=== PATIENT | female | born 1980 | race African-American/Black ===

== ENCOUNTER 2020-05-15 07:20 | Emergency (ER) | payer MEDICAID, OTHER ==
[~2020-05-15] VITALS: Ht 165.1 cm; Wt 77.0 kg
[2020-05-15 08:24] LABS: BASOPHILS % 0.6 % (0.0-2.0); HEMATOCRIT. 38.1 % (36.0-48.0); HEMOGLOBIN. 12.7 g/dL (12.0-16.0); LYMPHOCYTES % 27.6 % (20.0-50.0); MEAN CORPUSCULAR HEMOGLOBIN 28.6 pg (28.0-32.0); MEAN CORPUSCULAR VOLUME 85.9 fL (81.0-99.0); MEAN PLATELET VOLUME 7.2 fl (7.4-10.4); MONOCYTES % 7.7 % (2.0-8.0); NEUTROPHILS % 61.1 % (40.0-76.0); PLATELET 359 x1000/uL (130-400); RED BLOOD CELL COUNT 4.44 mill/uL (4.2-5.4); RED CELL DISTRIBUTION WIDTH 13.7 % (11.6-14.6)
[2020-05-15 08:29] LABS: CHLORIDE 113 mEq/L (98-107)
[2020-05-15 08:33] LABS: PROTHROMBIN TIME 10.3 sec (9.6-11.0)
[2020-05-15 08:43] LABS: HCG SCREEN NEGATIVE
[2020-05-15] MEDS ORDERED: KETOROLAC 30MG/ML VIAL IV STA (09:48)
[2020-05-15] MEDS ORDERED: SODIUM CHLORIDE 0.9% 1,000 ML IV ONE (09:48)
[2020-05-15] MEDS ORDERED: METOCLOPRAMIDE HCL 10MG/2ML VIAL IV ONE (10:00)
[2020-05-15] MEDS ORDERED: IOHEXOL-350 100 ML BOTTLE ONE (11:26)
[2020-05-15 11:35] VITALS: BP 154/97
== END 2020-05-15 11:58 | disposition home or self-care (01) ==
LOC: ER 07:20
DX: R51 Headache (principal); I10 Essential (primary) hypertension
CPT/HCPCS: 36415; 70486; 70496; 80053; 84484; 84703; 85025; 85610; 93005; 96361; 96374; 96375; 99285; J1885; J2765; J7030; Q9967

== ENCOUNTER 2021-07-31 12:33 | Emergency (ER) | payer MEDICAID, OTHER ==
[~2021-07-31] VITALS: Ht 165.1 cm; Wt 69.6 kg
[2021-07-31 12:42] VITALS: BP 180/111
[2021-07-31] MEDS ORDERED: AMLO10TA4 PO (14:04)
[2021-07-31] MEDS ORDERED: DEXTL PO (14:04)
== END 2021-07-31 16:24 | disposition home or self-care (01) ==
LOC: ER 12:33
DX: J06.9 Acute upper respiratory infection, unspecified (principal); I10 Essential (primary) hypertension; Z20.822 Contact with and (suspected) exposure to COVID-19; Z98.890 Other specified postprocedural states
CPT/HCPCS: 87070; 87426; 87430; 99283

== ENCOUNTER 2025-08-18 14:36 | Emergency (ER) | payer MEDICAID, OTHER ==
[~2025-08-18] VITALS: Ht 167.6 cm; Wt 75.0 kg
[~2025-08-18 14:36] MED LIST: AMLO-905 PO; DEXTL PO
[2025-08-18 14:46] VITALS: O2SAT 99
[2025-08-18] MEDS ORDERED: KETOROLAC 30MG/ML VIAL IM ONE (16:00)
[2025-08-18] MEDS ORDERED: HYDROCODONE/ACETAMINOPHEN 5/325MG TABLET PO ONE (16:00)
[2025-08-18] MEDS: CYCLOBENZAPRINE 10MG TABLET PO SCH (18:14)
[2025-08-18] MEDS: KETOROLAC 30MG/ML VIAL IM NR (18:14)
[2025-08-18] MEDS: HYDROCODONE/ACETAMINOPHEN 5/325MG TABLET PO NR (18:14)
[2025-08-18] MEDS ORDERED: NAPR-681 PO (19:05)
[2025-08-18 19:20] VITALS: BP 169/106; PULSE 85; RESP 18; TEMP 37; O2SAT 98
== END 2025-08-18 19:23 | disposition home or self-care (01) ==
LOC: ER 14:36
DX: M54.41 Lumbago with sciatica, right side (principal); I10 Essential (primary) hypertension; Z79.899 Other long term (current) drug therapy; Z91.148 Patient's other noncompliance with medication regimen for other reason
CPT/HCPCS: 99283; 81025; 96372; J1885